=== PATIENT | male | born 1950 | race Caucasian/White ===

== ENCOUNTER 2018-05-02 20:02 | Emergency (ER) | payer MEDICARE ==
[2018-05-02 20:09] VITALS: BP 146/85; PULSE 87; RESP 18; TEMP 99.2; O2SAT 99
--- NOTE | 2018-05-02 21:05 | C.PDOC ---
History Of Present Illness 68 year old male presents to the ED for evaluation of a laceration to his right side parietal scalp. Patient reports that while going down a slope in his backyard he slipped, fell and hit his head against an object. Patient denies LOC , headache, blurry vision, nausea, vomit, dizziness, weakness, numbness. - HPI Time Seen by Provider: 05/02/18 20:15 Chief Complaint (Nursing): Trauma History Per: Patient History/Exam Limitations: no limitations Onset/Duration Of Symptoms: Hrs Injury Occurred (Timing): Just Before Arrival Location Of Injury: Right: Hand Recent travel outside of the [place]: No Additional History Per: Patient Past Medical History Reviewed: Historical Data, Nursing Documentation, Vital Signs Vital Signs: Last Vital Signs Temp 99.2 F 05/02/18 20:06 Pulse 87 05/02/18 20:06 Resp 18 05/02/18 20:06 BP 146/85 05/02/18 20:06 Pulse Ox 99 05/02/18 23:44 - Medical History PMH: No Chronic Diseases Surgical History: No Surg Hx Family History: States: Unknown Family Hx - Social History Hx Alcohol Use: No Hx Substance Use: No - Immunization History Hx Tetanus Toxoid Vaccination: No Hx Influenza Vaccination: No Hx Pneumococcal Vaccination: No Review Of Systems Constitutional: Negative for: Fever, Chills Eyes: Negative for: Vision Change Cardiovascular: Negative for: Chest Pain, Palpitations Respiratory: Negative for: Cough, Shortness of Breath Gastrointestinal: Negative for: Nausea, Vomiting Skin: Positive for: Other (laceration) Neurological: Negative for: Headache, Dizziness Physical Exam - Physical Exam Appears: Non-toxic, No Acute Distress Skin: Normal Color, Warm, Dry Head: Atraumatic, Normacephalic, Laceration (1.5 cm superficial to right parietal scalp, no FB seen, no hematoma) Eye(s): bilateral: Normal Inspection, PERRL, EOMI Oral Mucosa: Moist Neck: Normal ROM, No Midline Cervical Tenderness, Supple Chest: Symmetrical Cardiovascular: Rhythm Regular Extremity: Normal ROM, No Tenderness Extremity: Bilateral: Atraumatic Neurological/Psych: Oriented x3, Normal Speech, Normal Cranial Nerves, Normal Motor, Normal Sensation Gait: Steady ED Course And Treatment O2 Sat by Pulse Oximetry: 99 (ON RA) Pulse Ox Interpretation: Normal Progress Note: Patient had laceration repaired, patient tolerated the procedure well and was instructed in proper wound care. Head injury precautions also d/w who expressed understanding Laceration - Laceration Repair right parietal scalp Wound Length (In cm): 1.5 Description Of Wound: Linear Wound Cleansed With: Sterile Saline Anesthesia: Lidocaine 1% Wound Examination: Irrigated With Saline, No FB With Wound Exploration Wound Closure: Martín (X3) Wound Complexity: Simple Disposition Counseled Patient/Family Regarding: Diagnosis, Need For Followup, Rx Given - Disposition Referrals: Natanael Akhtar MD [Primary Care Provider] - Disposition: HOME/ ROUTINE Disposition Time: 21:01 Condition: STABLE Additional Instructions: Please follow up with PMD in 1 week staple removal Observe for head injury precautions Return to ER if worse Instructions: Laceration Repair With Martín (DC), Minor Head Injury (DC) Forms: [email or web address] (Uruguayan) - Clinical Impression Clinical Impression: Scalp laceration - PA / CLIMBING GUIDE / Resident Statement MD/DO has reviewed & agrees with the documentation as recorded. - Scribe Statement The provider has reviewed the documentation as recorded by the Scribe Roger Carter All medical record entries made by the Scribe were at my direction and personally dictated by me. I have reviewed the chart and agree that the record accurately reflects my personal performance of the history, physical exam, medical decision making, and the department course for this patient. I have also personally directed, reviewed, and agree with the discharge instructions and disposition.
== END 2018-05-02 21:12 | disposition home or self-care (01) ==
LOC: SUPCPDRO 20:02 → C.ER 20:02
DX: S01.01XA Laceration without foreign body of scalp, initial encounter (principal); W01.10XA Fall on same level from slipping, tripping and stumbling with subsequent striking against unspecified object, initial encounter; Y92.096 Garden or yard of other non-institutional residence as the place of occurrence of the external cause

== ENCOUNTER 2018-05-07 16:27 | Emergency (ER) | payer MEDICARE ==
[2018-05-07 16:33] VITALS: BP 158/86; PULSE 69; RESP 17; TEMP 97.7; O2SAT 100
--- NOTE | 2018-05-07 16:50 | C.PDOC ---
History Of Present Illness 68-year-old male, presents to the emergency department for staple removal from his scalp. Patient was seen in ED on 05/02 and had three mal placed to right parietal scalp after he slipped and fell. Denies any numbness/weakness, nausea/ vomiting or fever. No other complaints at this time. Time Seen by Provider: 05/07/18 16:33 Chief Complaint (Nursing): Suture/Staple Removal History Per: Patient History/Exam Limitations: no limitations Onset/Duration Of Symptoms: Days Ago Past Medical History Reviewed: Historical Data, Nursing Documentation, Vital Signs Vital Signs: Last Vital Signs Temp 97.7 F 05/07/18 16:32 Pulse 69 05/07/18 16:32 Resp 17 05/07/18 16:32 BP 158/86 H 05/07/18 16:32 Pulse Ox 100 05/07/18 16:50 Family History: States: No Known Family Hx - Social History Hx Alcohol Use: No Hx Substance Use: No - Immunization History Hx Tetanus Toxoid Vaccination: No Hx Influenza Vaccination: No Hx Pneumococcal Vaccination: No Review Of Systems Constitutional: Negative for: Fever, Chills Gastrointestinal: Negative for: Nausea, Vomiting Neurological: Negative for: Weakness, Numbness Physical Exam - Physical Exam Appears: Non-toxic, No Acute Distress Skin: Normal Color, Warm, Dry, No Rash Head: Other (right parietal scalp (+)[address] No drainage, erythema or warmth) Eye(s): bilateral: Normal Inspection, PERRL Nose: Normal Oral Mucosa: Moist Lips: Normal Appearing Neck: Normal ROM Respiratory: No Accessory Muscle Use Extremity: Normal ROM, No Deformity, No Swelling Neurological/Psych: Oriented x3, Normal Speech ED Course And Treatment O2 Sat by Pulse Oximetry: 100 (RA) Pulse Ox Interpretation: Normal Medical Decision Making Medical Decision Making: three mal were removed from scalp without difficulty. Pt tolerated well, will be discharged for outpatient f/u with PMD. Disposition - Disposition Referrals: Natanael Akhtar MD [Staff Provider] - Disposition: HOME/ ROUTINE Disposition Time: 16:48 Condition: GOOD Additional Instructions: Follow up with the medical doctor within 1-2 days. Return if worsened, Instructions: Staple Removal Forms: [employer] (Korean) - Clinical Impression Clinical Impression: Removal of staple - Scribe Statement All medical record entries made by the Scribe were at my direction and personally dictated by me. I have reviewed the chart and agree that the record accurately reflects my personal performance of the history, physical exam, medical decision making, and the department course for this patient. I have also personally directed, reviewed, and agree with the discharge instructions and disposition.
== END 2018-05-07 17:08 | disposition home or self-care (01) ==
LOC: C.ER 16:27
DX: Z48.02 Encounter for removal of sutures (principal)

== ENCOUNTER 2019-03-15 19:08 | Emergency (ER) | payer MEDICARE ==
[2019-03-15 19:13] VITALS: RESP 20; O2SAT 100
[2019-03-15] MEDS ORDERED: Sodium Chloride 0.9% 1,000 ML IV ONE (19:42)
[2019-03-15] MEDS ORDERED: Sucralfate 1 gm/10 ml Oral Susp UD PO STA (19:43)
--- NOTE | 2019-03-15 19:46 | C.PDOC ---
History Of Present Illness 68 year old male presents to the ED c/o gastric reflux associated with nausea and vomiting for the past few days. Patient denies fever, chills, rash, CP, SOB, diarrhea, dysuria, hematuria, back pain. Chief Complaint (Nursing): Abdominal Pain History Per: Patient History/Exam Limitations: no limitations Onset/Duration Of Symptoms: Days Current Symptoms Are (Timing): Still Present Location Of Pain/Discomfort: Epigastric Quality Of Discomfort: Burning Associated Symptoms: Nausea, Vomiting. denies: Diarrhea, Urinary Symptoms Recent travel outside of the [place]: No Additional History Per: Patient Past Medical History Reviewed: Historical Data, Nursing Documentation, Vital Signs Vital Signs: Last Vital Signs Temp 98.7 F 03/15/19 19:10 Pulse 86 03/15/19 19:10 Resp 20 03/15/19 19:10 BP 142/90 03/15/19 19:10 Pulse Ox 100 03/15/19 19:10 Primary Care Provider: Natanael Akhtar - Medical History PMH: No Chronic Diseases Surgical History: No Surg Hx Family History: States: Unknown Family Hx - Social History Hx Alcohol Use: No Hx Substance Use: No - Immunization History Hx Tetanus Toxoid Vaccination: No Hx Influenza Vaccination: Yes Hx Pneumococcal Vaccination: No Review Of Systems Constitutional: Negative for: Fever, Chills Cardiovascular: Negative for: Chest Pain Respiratory: Negative for: Shortness of Breath Gastrointestinal: Positive for: Nausea, Vomiting, Abdominal Pain. Negative for: Diarrhea Genitourinary: Negative for: Dysuria, Hematuria Musculoskeletal: Negative for: Back Pain Skin: Negative for: Rash Physical Exam - Physical Exam Appears: Non-toxic, No Acute Distress Skin: Normal Color, Warm, Dry Head: Atraumatic, Normacephalic Eye(s): bilateral: Normal Inspection Oral Mucosa: Moist Neck: Normal ROM, Supple Chest: Symmetrical Cardiovascular: Rhythm Regular Respiratory: Normal Breath Sounds, No Rales, No Rhonchi, No Wheezing Gastrointestinal/Abdominal: Soft, Tenderness (mild epigastric), No Guarding, No Rebound Extremity: Normal ROM, No Tenderness, No Swelling Neurological/Psych: Oriented x3, Normal Speech, Normal Cognition Gait: Steady ED Course And Treatment - Laboratory Results Result Diagrams: 03/15/19 20:30 03/15/19 20:30 O2 Sat by Pulse Oximetry: 100 (ON RA) Pulse Ox Interpretation: Normal Medical Decision Making Medical Decision Making: Plan: * Labs * Carafate 1 gm PO * Protonix 40 mg IVP * IV fluids * Zofran 4 mg IVP Disposition Counseled Patient/Family Regarding: Diagnosis - Disposition Referrals: Natanael Akhtar MD [Staff Provider] - Disposition: HOME/ ROUTINE Disposition Time: 21:54 Condition: STABLE Additional Instructions: continue Pantoprazole. Prescriptions: Sucralfate [Carafate] 1 gm PO QID #20 tab Instructions: Acid Reflux (Gastroesophageal Reflux Disease), Adult (DC) Forms: [employer] (Syriac) - POA Present On Arrival: None - Clinical Impression Clinical Impression: GERD (gastroesophageal reflux disease) - Scribe Statement The provider has reviewed the documentation as recorded by the Scribe Roger Carter All medical record entries made by the Scribe were at my direction and personally dictated by me. I have reviewed the chart and agree that the record accurately reflects my personal performance of the history, physical exam, medical decision making, and the department course for this patient. I have also personally directed, reviewed, and agree with the discharge instructions and disposition.
[2019-03-15] MEDS ORDERED: Sucralfate 1 gm/10 ml Oral Susp UD ONE (20:12)
[2019-03-15] MEDS ORDERED: Sodium Chloride 0.9% 1,000 ML ONE (20:12)
[2019-03-15 20:47] LABS: BASO # 0.1 K/uL (0.0-0.2); BASO % 1.1 % (0.0-2.0); EOS # 0.2 K/uL (0.0-0.7); EOS % 2.3 % (0.0-4.0); HEMOGLOBIN 14.4 g/dL (12.0-18.0); LYMPH # 2.3 K/uL (1.0-4.3); LYMPH % 24.4 % (20.0-40.0); MEAN CELL VOLUME 90.4 fL (80.0-94.0); MEAN CORPUSCULAR HEMOGLOBIN 30.9 pg (27.0-31.0); MEAN CORPUSCULAR HGB CONC 34.2 g/dL (33.0-37.0); MEAN PLATELET VOLUME 8.5 fL (7.2-11.7); MONO # 0.9 K/uL (0.0-0.8); MONO % 9.2 % (0.0-10.0); NEUT # 5.9 K/uL (1.8-7.0); NRBC % 0.1 % (0.0-2.0); RBC 4.64 Mil/uL (4.40-5.90); RED CELL DISTRIBUTION WIDTH 13.3 % (11.5-14.5); WHITE BLOOD COUNT 9.3 K/uL (4.8-10.8)
[2019-03-15 21:07] LABS: ALB/GLOB RATIO 1.2 (1.0-2.1); ALBUMIN 4.4 g/dL (3.5-5.0); ALT/SGPT 28 U/L (21-72); AST/SGOT 26 U/L (17-59); BLOOD UREA NITROGEN 18 mg/dL (9-20); GFR NON-AFRICAN AMERICAN > 60; LIPASE 118 U/L (23-300)
[2019-03-15 22:41] VITALS: BP 120/78; PULSE 66; TEMP 98.3
== END 2019-03-15 22:30 | disposition home or self-care (01) ==
LOC: C.ER 19:08
DX: K21.9 Gastro-esophageal reflux disease without esophagitis (principal)
CPT/HCPCS: 80053; 83690; 85025; 96361; 96374; 96375; 99284; C9113; J2405; J7030

== ENCOUNTER 2019-03-17 19:15 | Emergency (ER) | payer MEDICARE ==
[2019-03-17 20:48] LABS: URINE BILIRUBIN NEGATIVE (NEGATIVE); URINE BLOOD NEGATIVE (NEGATIVE); URINE CLARITY Clear (Clear); URINE COLOR Straw (YELLOW); URINE GLUCOSE (UA) NORMAL (Normal); URINE LEUKOCYTE ESTERASE NEG Leu/uL (Negative); URINE PROTEIN NEGATIVE (NEGATIVE); URINE UROBILINOGEN NORMAL mg/dL (0.2-1.0)
[2019-03-17 20:50] LABS: BASO % 0.5 % (0.0-2.0); EOS # 0.2 K/uL (0.0-0.7); EOS % 2.6 % (0.0-4.0); HEMOGLOBIN 14.7 g/dL (12.0-18.0); LYMPH # 3.1 K/uL (1.0-4.3); LYMPH % 38.4 % (20.0-40.0); MEAN CORPUSCULAR HEMOGLOBIN 30.8 pg (27.0-31.0); MEAN CORPUSCULAR HGB CONC 33.9 g/dL (33.0-37.0); MEAN PLATELET VOLUME 8.8 fL (7.2-11.7); MONO # 0.7 K/uL (0.0-0.8); MONO % 8.2 % (0.0-10.0); NEUT # 4.1 K/uL (1.8-7.0); NEUT % 50.3 % (50.0-75.0); NRBC % 0.1 % (0.0-2.0); RBC 4.76 Mil/uL (4.40-5.90); WHITE BLOOD COUNT 8.1 K/uL (4.8-10.8)
--- NOTE | 2019-03-17 20:57 | C.PDOC ---
History Of Present Illness 68 year old male presents to ED with complaint of weakness and subjective fevers. Patient was in [facility] ED 2 days ago and was worked up for gastritis/reflux and was found negative. Patient states that returned from [place] on March 04 to a malaria endemic area. After 1 week of return, he noticed malaise and subjective fever spikes. He states that the symptoms have kept him from going to work. Patient is also experiencing increased dyspnea on exertion. Patient denies smoking,drinking, or recent diarrheal illness. He denies vomiting , nausea, and diarrhea Time Seen by Provider: 03/17/19 19:57 Chief Complaint (Nursing): Weakness/Neurological Deficit History Per: Patient History/Exam Limitations: no limitations Onset/Duration Of Symptoms: Other (2 weeks) Current Symptoms Are (Timing): Still Present Past Medical History Reviewed: Historical Data, Nursing Documentation, Vital Signs Vital Signs: Last Vital Signs Temp 98.5 F 03/17/19 19:41 Pulse 60 03/17/19 19:41 Resp 20 03/17/19 19:41 BP 124/78 03/17/19 19:41 Pulse Ox 100 03/17/19 19:41 Primary Care Provider: Natanael Akhtar - Medical History PMH: No Chronic Diseases Surgical History: No Surg Hx Family History: States: Unknown Family Hx - Social History Hx Alcohol Use: No Hx Substance Use: No - Immunization History Hx Tetanus Toxoid Vaccination: No Hx Influenza Vaccination: Yes Hx Pneumococcal Vaccination: No Review Of Systems Constitutional: Positive for: Fever, Weakness, Malaise. Negative for: Chills Cardiovascular: Negative for: Chest Pain Respiratory: Positive for: SOB with Excertion. Negative for: Cough Gastrointestinal: Negative for: Nausea, Vomiting, Abdominal Pain, Diarrhea Physical Exam - Physical Exam Appears: No Acute Distress, Other (thin, male) Skin: Normal Color, Warm, Dry Head: Atraumatic, Normacephalic Neck: Normal ROM, Supple Chest: Symmetrical, No Deformity Cardiovascular: Rhythm Regular, No Murmur Respiratory: No Accessory Muscle Use, No Rales, No Rhonchi, No Wheezing Gastrointestinal/Abdominal: Soft, No Tenderness Extremity: Capillary Refill (<2 seconds), No Swelling (bilateral lower extremities) Pulses: Left Dorsalis Pedis: Normal, Right Dorsalis Pedis: Normal Neurological/Psych: Oriented x3, Normal Speech, Normal Cognition ED Course And Treatment - Laboratory Results Result Diagrams: 03/17/19 20:36 03/17/19 20:36 Lab Interpretation: Normal (parasite/malaria blood smear NEG) O2 Sat by Pulse Oximetry: 100 (in RA) Pulse Ox Interpretation: Normal - Radiology CXR: Interpreted by Me CXR Interpretation: Yes: No Acute Disease Progress Note: Labs ordered with malaria, d-dimer, PTT, prothrombin, CMP, troponin, blood culture, and UA ordered. CXR ordered for patient. Reevaluation Time: 00:10 Reassessment Condition: Improved (remains aparently asymptomatic) Medical Decision Making Medical Decision Making: malaria/blood parasites and D-Dimer/PE considered in recent return from [facility] 03/04/19 w/u neg again labs wnl parasite smear and CT/PE protocol neg Defer empiric tx's for opt f/u. Disposition Doctor Will See Patient In The: Office Counseled Patient/Family Regarding: Studies Performed, Diagnosis - Disposition Disposition: HOME/ ROUTINE Disposition Time: 00:12 Condition: GOOD Forms: [employer] (Wolof) - Clinical Impression Clinical Impression: Malaise and fatigue - Scribe Statement The provider has reviewed the documentation as recorded by the Scribe (Leslie Carson) All medical record entries made by the Scribe were at my direction and personal ly dictated by me. I have reviewed the chart and agree that the record accurately reflects my personal performance of the history, physical exam, medical decision making, and the department course for this patient. I have also personally directed, reviewed, and agree with the discharge instructions and disposition.
[2019-03-17 21:01] LABS: INR 1.1; PARTIAL THROMBOPLASTIN TIME 30.2 SECONDS (21-34); PROTHROMBIN TIME 11.5 SECONDS (9.7-12.2)
[2019-03-17 21:09] LABS: ALB/GLOB RATIO 1.4 (1.0-2.1); ALT/SGPT 21 U/L (21-72); AST/SGOT 25 U/L (17-59); BLOOD UREA NITROGEN 18 mg/dL (9-20); CALCIUM 9.4 mg/dl (8.6-10.4); GFR NON-AFRICAN AMERICAN 55
[2019-03-17 21:13] LABS: B-TYPE NATRIURETIC PEPTIDE 32.6 pg/mL (0-900)
[2019-03-17] MEDS ORDERED: Iodixanol 320 MG/ML 100 ML BOTTLE IV ONE (22:03)
[2019-03-18 00:08] LABS: INTRACELLULAR PARASITE NEGATIVE (NEGATIVE)
[2019-03-18 00:12] VITALS: O2SAT 100
[2019-03-18 00:37] VITALS: BP 158/96; PULSE 77; RESP 16; TEMP 98.2
--- NOTE | 2019-03-18 10:13 | CT ---
Date of service: 03/17/2019 PROCEDURE: CT Chest with contrast (Pulmonary Angiogram) HISTORY: [place], long plane ride, [place] 402 COMPARISON: Chest radiographs performed earlier the same day. TECHNIQUE: Axial computed tomography images were obtained of the chest in the pulmonary arterial phase of enhancement. Coronal and sagittal reformatted images were created and reviewed. Intravenous contrast dose: Radiation dose: Total exam DLP = 444.1 mGy-cm. This CT exam was performed using one or more of the following dose reduction techniques: Automated exposure control, adjustment of the mA and/or kV according to patient size, and/or use of iterative reconstruction technique. FINDINGS: PULMONARY ARTERIES: There are no filling defects in the pulmonary arteries to suggest acute pulmonary embolism. AORTA: No acute findings. No thoracic aortic aneurysm. There are minimal aortic atherosclerotic calcifications present. LUNGS: The lungs are well inflated and clear. There is mild biapical pleural parenchymal scarring. No nodule, mass or pulmonary consolidation. PLEURAL SPACES: No effusion or pneumothorax. HEART: No cardiomegaly. No significant pericardial effusion. LYMPH NODES: No pathologic mediastinal or hilar lymphadenopathy. BONES, CHEST WALL: Within normal limits for the patient's age. No fracture or destructive lesion. 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 IMPRESSION: No CTA evidence for acute pulmonary embolism. Clear lungs. A preliminary report was provided by [employer].
--- NOTE | 2019-03-18 10:27 | RAD ---
HISTORY: SOB COMPARISON: No prior. TECHNIQUE: Chest PA and lateral, 2 views FINDINGS: LUNGS: Mild biapical pleural thickening. No focal consolidation. Please note that chest x-ray has limited sensitivity for the detection of pulmonary masses. PLEURA: No significant pleural effusion identified. No definite pneumothorax . CARDIOVASCULAR: Heart size appears within normal limits. Mild atherosclerotic calcifications. OSSEOUS STRUCTURES: Degenerative changes of the spine. VISUALIZED UPPER ABDOMEN: Unremarkable. OTHER FINDINGS: None. IMPRESSION: No acute findings identified.
== END 2019-03-18 00:37 | disposition home or self-care (01) ==
LOC: C.ER 19:15
DX: R53.81 Other malaise (principal); R53.83 Other fatigue
CPT/HCPCS: 71046; 71275; 80053; 81001; 83880; 84484; 85025; 85378; 85610; 85730; 87040; 87207; 99285; Q9967

== ENCOUNTER 2019-03-23 08:20 | Outpatient (CLI) | payer MEDICARE | END 2019-03-23 08:21 | disposition home or self-care (01) | LOC: C.CARD 08:20 | DX: R07.9 Chest pain, unspecified (principal); E11.9 Type 2 diabetes mellitus without complications ==